=== PATIENT | female | born 1955 | race Caucasian/White ===

== ENCOUNTER → 2018-05-02 | Outpatient (CLI) | payer OTHER ==
[2015-08-14 15:12] VITALS: BP 123/63
[~2018-05-02] MED LIST: ATOR20TA PO; BUPR75TA5 PO; CARV6.252 PO; CITA40TA12 PO; INSU100I11 SQ; INSU100I13 SQ; LEVO112T4 PO; LOSA25TA5 PO; METF10007 PO; OMEP20CA9 PO; PANT40TA3 PO; POTA20TA82 PO; SIMV20TA3 PO; SUCR1TAB35 PO; ZOLP10TA PO
--- NOTE | 2018-05-02 16:50 | RAD ---
Examination: RENOGRAM W FLOW WO PHARM History: No Lasix - stage III Renal DX 5.3.mci 99mTc MAG3 Comparison/Correlation: CT abdomen and pelvis without contrast 08/07/2015 Findings: 5.3 mCi technetium 99m MAG3 was intravenously administered for venogram flow and function examination. Marked right renal atrophy is present. Perfusion of the left kidney is normal. Perfusion of the right kidney is probably normal but it is very small in size and not well delineated on flow phase images. Differential renal function is 6.4 percent on the right and 90.6 percent on the left. Time to peak tracer activity on the right is 0.6 minutes and on the left is 10 minutes. Time to one half of the tracer activity in the right is 0.7 minutes and on the left is 29.5 minutes. Radiotracer counts include the entire right and left kidney including the pyelocalyceal systems. Left extrarenal pelvis is noted. Urinary bladder is identified. No hydroureter. Impression: No collecting system obstruction. Impaired left renal excretion is noted. Marked right renal atrophy. Electronically signed by: Blaise Matthews MD (05/02/2018 4:47 PM) [facility]
== END | disposition home or self-care (01) ==
LOC: NM 10:39
PROVIDERS: ATTEND Internal Medicine Nephrology
DX: N26.1 Atrophy of kidney (terminal) (principal); N28.89 Other specified disorders of kidney and ureter; I10 Essential (primary) hypertension; E11.9 Type 2 diabetes mellitus without complications; Z87.891 Personal history of nicotine dependence; Z79.01 Long term (current) use of anticoagulants; Z79.4 Long term (current) use of insulin
CPT/HCPCS: 78707; 96374; A9562